=== PATIENT | male | born 1990 | race Caucasian/White ===

== ENCOUNTER 2024-01-24 04:16 | Emergency (ER) | payer MEDICAID, OTHER ==
[~2024-01-24] VITALS: Ht 175.3 cm; Wt 86.2 kg
[~2024-01-24 04:16] MED LIST: IBUP-1842 PO
[2024-01-24 04:18] VITALS: BP_SYST 148; BP_SYST 151; BP_DIAS 91; BP_DIAS 92; PULSE 106; PULSE 92; RESP 16; RESP 18; TEMP 97.2; TEMP 98.5; O2SAT 99
[2024-01-24 04:35] VITALS: O2SAT 98
[2024-01-24 06:11] LABS: APPEARANCE,URINE CLEAR (CLEAR); BILIRUBIN,URINE NEGATIVE (NEGATIVE); BLOOD, URINE NEGATIVE (NEGATIVE); COLOR,URINE YELLOW (YELLOW); LEUKOCYTE ESTERASE ,URINE NEGATIVE (NEGATIVE); NITRITE, URINE NEGATIVE (NEGATIVE); PROTEIN,URINE NEGATIVE (NEGATIVE); UGLUCOSE NEGATIVE (NEGATIVE); UROBILINOGEN,URINE 0.2 EU/dL (0.2 - 1)
[2024-01-24 06:16] VITALS: O2SAT 98
[2024-01-24 06:16] LABS: BARBITURATE, URINE NEGATIVE ng/ml (NEG <=200)
[2024-01-24 06:17] LABS: AMPHETAMINE, URINE NEGATIVE ng/ml (NEG <=1000); BENZODIAZEPINE, URINE NEGATIVE ng/mL (NEG <=200); CANNABINOID, URINE NEGATIVE ng/mL (NEG <=50); COCAINE, URINE NEGATIVE ng/mL (NEG <=300); OPIATE, URINE NEGATIVE ng/mL (NEG <=2000); PHENCYCLIDINE SCREEN,URINE NEGATIVE ng/mL (NEG <=25)
[2024-01-24 06:57] LABS: ANION GAP 15.8 (8-16); CALCIUM 8.1 mg/dL (8.5-10.1); CARBON DIOXIDE 24.1 mmol/L (21-32); CREATININE 0.9 mg/dL (0.6-1.3); POTASSIUM 3.9 mmol/L (3.5-5.1)
[2024-01-24 06:59] LABS: BASOPHILS % (AUTO) 0.6 % (0.0-2.0); EOSINOPHILS # (AUTO) 0.1 K/uL (0-0.4); EOSINOPHILS % (AUTO) 1.1 % (0.0-4.0); HEMOGLOBIN 14.2 g/dL (12.0-18.0); LYMPHOCYTES # (AUTO) 1.3 K/uL (2.0-11.5); LYMPHOCYTES % (AUTO) 21.1 % (20.5-51.1); MEAN CORPUSCULAR HEMOGLOBIN 29 pg (27-31); MEAN CORPUSCULAR HGB CONC 34 g/dL (33-37); MEAN CORPUSCULAR VOLUME 86.7 fL (80-94); MONOCYTES # (AUTO) 0.4 K/uL (0.8-1.0); MONOCYTES % (AUTO) 5.9 % (1.7-9.3); NEUTROPHILS # (AUTO) 4.5 K/uL (1.8-7.7); NEUTROPHILS % (AUTO) 71.3 % (42.2-75.2); PLATELET COUNT (AUTO) 312 K/uL (140-450); RED BLOOD CELL COUNT(AUTO) 4.84 MIL/uL (4.20-6.10); RED CELL DISTRIBUTION WIDTH 12.5 % (11.6-13.7); WHITE BLOOD COUNT (AUTO) 6.4 K/uL (4.8-10.8)
[2024-01-24 07:13] LABS: ACETAMINOPHEN < 0.5 ug/ml (10-30); ALCOHOL, BLOOD 197 mg/dL (<10); SALICYLATE < 2.8 mg/dL (2.8-20.0)
[2024-01-24] MEDS: KETOROLAC 30 MG/ML VIAL IM ONE (10:54)
[2024-01-24] MEDS ORDERED: CRUSHER, PILL MC ONE (12:08)
[2024-01-24] MEDS: LORazepam 1 MG TAB PO ONE (12:10)
[2024-01-24] MEDS: SERTRALINE 50 MG TAB PO SCH (12:12)
[2024-01-24 20:13] VITALS: O2SAT 98
[2024-01-24 22:37] VITALS: O2SAT 98
[2024-01-25 00:37] VITALS: O2SAT 98
[2024-01-25 08:15] VITALS: O2SAT 98
[2024-01-25] MEDS ORDERED: CRUSHER, PILL MC ONE (09:41)
[2024-01-25 12:16] VITALS: O2SAT 99
[2024-01-25 16:17] VITALS: O2SAT 99
[2024-01-25 16:35] VITALS: BP 121/79; PULSE 66; RESP 18; TEMP 98.1; O2SAT 98
== END 2024-01-25 18:34 ==
LOC: MED 04:16
DX: R45.851 Suicidal ideations (principal); F32.9 Major depressive disorder, single episode, unspecified; Z20.822 Contact with and (suspected) exposure to COVID-19; Z79.899 Other long term (current) drug therapy
CPT/HCPCS: 36415; 80048; 80305; 81003; 85025; 87426; 96372; 99285; G0480; G0482; J1885